=== PATIENT | female | born 1925 | race Two or more races ===

== ENCOUNTER → 2017-04-02 | Outpatient (CLI) | payer MEDICARE, OTHER ==
--- NOTE | 2017-04-02 12:54 | FL ---
EXAMINATION TYPE: FL barium swallow w video DATE OF EXAM: 04/02/2017 MODIFIED SWALLOW / DEGLUTITION STUDY CLINICAL HISTORY: Dysphagia. TECHNIQUE: Deglutition study is performed utilizing thin liquid barium, honey and nectar thick liqui d barium, barium thick applesauce, and barium coated cracker. COMPARISON: None. FINDINGS: The oral and pharyngeal phases show satisfactory initiation and propagation with all modali ties tested. Normal mastication is seen with solid modalities tested. There is no evidence of penet ration or aspiration with any modality tested. Minute pharyngeal residue was appreciated with all con sistencies, within normal limits given the patient's age. A prominent cricopharyngeal bar is noted. A dditionally there is evidence of a Zenker's diverticulum with retention of all consistencies within t he diverticulum. IMPRESSION: 1. No evidence of aspiration or retention. 2. 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 3. Zenker's diverticulum with residual contrast retention. 4. Please refer to speech therapist notes for further details if necessary.
== END | disposition home or self-care (01) ==
LOC: RADFLMAIN 11:34
PROVIDERS: ATTEND Internal Medicine
DX: K22.5 Diverticulum of esophagus, acquired (principal); R13.10 Dysphagia, unspecified
CPT/HCPCS: 74230